=== PATIENT | male | born 1950 | race Caucasian/White ===

== ENCOUNTER 2025-03-06 07:41 | Outpatient (OUT) | payer MEDICARE, SELFPAY ==
--- OUTSIDE RECORDS SUMMARY | 2025-03-02 23:59 | XMS_ITS | Continuity of Care Document ---
Author Organization [facility] Address [address] [place] [id number] Care Team Providers Care [employer] Name Role Phone Zoë Brand Primary Care Physician Encounter FT_AMBFIN [id number] Date(s): 03/02/25 - 03/02/25 [facility] [address] [place] [address]- Encounter Diagnosis Prostate cancer(Discharge Diagnosis) - 03/02/25 Immunization due(Discharge Diagnosis) - 03/02/25 BMI 27.0-27.9,adult(Discharge Diagnosis) - 03/02/25 Overweight (BMI 25.0-29.9)(Discharge Diagnosis) - 03/02/25 Hyperlipemia(Discharge Diagnosis) - 03/02/25 Encounter for screening for hematologic disorder(Discharge Diagnosis) - 03/02/25 Screening for diabetes mellitus(Discharge Diagnosis) - 03/02/25 Impaired fasting glucose(Discharge Diagnosis) - 03/02/25 Screening for lung cancer(Discharge Diagnosis) - 03/02/25 Cigar smoker(Discharge Diagnosis) - 03/02/25 Former tobacco use(Discharge Diagnosis) - 03/02/25 Asymptomatic bradycardia(Discharge Diagnosis) - 03/02/25 Sigmoid diverticulosis(Discharge Diagnosis) - 03/02/25 Discharge Disposition: Home (Routine DC) Attending Physician: Zoë Brand DO Encounter Type: Clinic Allergies, Adverse Reactions, Alerts No Known Medication Allergies SubstanceCriticalitySeverityReactionReaction SeverityStatusSeasonalSneezing Active Treatment Plan Future Appointments Appointment Date:03/16/2025 08:00:00 AM Scheduled Provider: Location:[facility] Appointment Type: Medicare Wellness Subsequent Appointment Date:03/16/2025 09:00:00 AM Scheduled Provider:Zoë Brand DO Location:[facility] Appointment Type: Open Immunizations Given and Recorded VaccineDateStatusRefusal Reasonpneumococcal 20-valent conjugate ewbxths63/3/25 DpjmgRSZZ-PiE-2 (COVID-19) mRNA BNT-162b2 vax10/43JkrirJWJW-LzD-6 (COVID-19) mRNA BNT-162b2 vax13//07RmviuKNRR-DwO-6 (COVID-19) mRNA BNT-162b2 vax22/ FauieVYDP-WnY-8 mRNA (tozinameran 5y-11y) fkh547/90EvyrkquvVSSD-SlW-2 mRNA (tozinameran 5y-11y) vac43/46TgeskczbZCXK-XvA-6 mRNA (tozinameran 5y-11y) vac 52/Recorded 1Reason for Medication: Prophylaxis 2Reason for Medication: Prophylaxis 3Result Comment: Route: Unknown 4Result Comment: Route: Unknown Outside Source Comment: Comment on above: Reason for Medication: Prophylaxis 5Result Comment: Route: Unknown Outside Source Comment: Comment on above: Reason for Medication: Prophylaxis Medications No Known Medications Problem List ConditionConfirmationCourseEffective DatesStatusHealth StatusInformant Asymptomatic bradycardiaConfirmedActiveCervical radiculopathyConfirmedActive Cervical spondylosisConfirmedActiveCigar smokerConfirmedActiveDiverticular diseaseConfirmedResolvedSigmoid diverticulosisConfirmedActiveFormer tobacco use ConfirmedActiveHyperlipemiaConfirmedActiveImpaired fasting glucoseConfirmed ActiveProstate cancerConfirmedActiveScreening for diabetes mellitusConfirmed ActiveEncounter for screening for hematologic disorderConfirmedActiveScreening for lung cancerConfirmedActivePure butarkasnapjnutjease0EnwplgvpwEdnfosFfnxov intoleranceConfirmedActiveTobacco useConfirmedActivepatient 1ASCVD- 23.2% Procedures ProcedureDateRelated DiagnosisBody NotfVmbtkgObignmydthk22/1/15Completed Colonoscopy11/29/07CompletedBilateral gqlxeogorPojfhgezlAcjrtz9Pchhwkmcd TonsillectomyCompletedTransrectal biopsy of prostate using ultrasound (US) guidanceCompleted 1left knee 2peridontal surgery Social History Social History TypeResponseSmoking StatusCigars or pipes but not daily within last 30 days;Former smoker, quit more than 30 days ago;Never; Type: Cigars; Concerns about tobacco use in household: No; Tobacco use per day: 1; Started at age: 16.0; Stopped at age: 65;1, 2 entered on: 03/02/25Birth SexMaleSex RepresentationMale (finding) 1smokes a cigar on occasion 2pt quit smoking in 2018 Hospital Discharge Instructions Follow Up Care 02/25/2025 13:07:10 With:Zoë Brand DO, [facility], PED Address: When:Within 2 Week(s) Patient Care team information Care Team Personnel Name: Zoë Brand DO Position: FT Ambulatory - Primary Care Provider? Member Role: Primary Care Physician Address: [address] [place] [phone]- Telecom: Care Team Related Persons Name: KRISTI PRICE Name: JOHNSON SCHNEIDER Name: SANDRA PEÑA Insurance Providers Guarantor name: Health Plan Information #: 1 Payer: [employer] Payer Identifier: [id number] Member Number: [id number] Group Number: [id number] Subscriber Identifier: [id number] Relationship to Subscriber: self Coverage Type: MEDICARE Coverage Verification Date: 25 Telecom: [phone] Address: [facility] [id number] [place] [id number] [place] [address]
--- OUTSIDE RECORDS SUMMARY | 2025-03-02 23:59 | XMS_ITS | Continuity of Care Document ---
Author Organization [facility] Address Unknown Care Team Providers Care Geriatric Social Work Professor Name Role Phone Zoë Brand Primary Care Physician Encounter _[facility] [id number] Date(s): 03/02/25 - 03/02/[address] [address] Discharge Disposition: Home (Routine DC) Attending Physician: Zoë Brand DO Admitting Physician: Zoë Brand DO Encounter Type: Lab Drop off Allergies, Adverse Reactions, Alerts No Known Medication Allergies SubstanceCriticalitySeverityReactionReaction SeverityStatusSeasonalSneezing Active Treatment Plan Future Appointments Appointment Date:03/16/2025 08:00:00 AM Scheduled Provider: Location:[facility] Appointment Type: Medicare Wellness Subsequent Appointment Date:03/16/2025 09:00:00 AM Scheduled Provider:Zoë Brand DO Location:[facility] Appointment Type: Open Immunizations Given and Recorded VaccineDateStatusRefusal Reasonpneumococcal 20-valent conjugate urchcpd84/3/25 GiyhjGQQF-HrT-9 (COVID-19) mRNA BNT-162b2 vax10//38GkmfkYWAY-WiV-0 (COVID-19) mRNA BNT-162b2 vax107/22/24QlepoONRL-WsR-7 (COVID-19) mRNA BNT-162b2 vax206/24/20 QozgpHWLP-LnU-4 mRNA (tozinameran 5y-11y) yzk720//12UrzesvyrGQQO-NjI-6 mRNA (tozinameran 5y-11y) vac43//34IanwqxrgXNMT-MqL-5 mRNA (tozinameran 5y-11y) vac 52//Recorded 1Reason for Medication: Prophylaxis 2Reason for Medication: Prophylaxis 3Result Comment: Route: Unknown 4Result Comment: Route: Unknown Outside Source Comment: Comment on above: Reason for Medication: Prophylaxis 5Result Comment: Route: Unknown Outside Source Comment: Comment on above: Reason for Medication: Prophylaxis Problem List ConditionConfirmationCourseEffective DatesStatusHealth StatusInformant Asymptomatic bradycardiaConfirmedActiveCervical radiculopathyConfirmedActive Cervical spondylosisConfirmedActiveCigar smokerConfirmedActiveDiverticular diseaseConfirmedResolvedSigmoid diverticulosisConfirmedActiveFormer tobacco use ConfirmedActiveHyperlipemiaConfirmedActiveImpaired fasting glucoseConfirmed ActiveProstate cancerConfirmedActiveScreening for diabetes mellitusConfirmed ActiveEncounter for screening for hematologic disorderConfirmedActiveScreening for lung cancerConfirmedActivePure biqruenzltqbdalkokzt4RwgbpbniuShiejxDcpcuy intoleranceConfirmedActiveTobacco useConfirmedActivepatient 1ASCVD- 23.2% Procedures ProcedureDateRelated DiagnosisBody OchlYpfijcLsbnvjroryy84/1/15Completed Colonoscopy11/29/07CompletedBilateral tzqichwmpPpjohihquBephgs7Eevnjofer TonsillectomyCompletedTransrectal biopsy of prostate using ultrasound (US) guidanceCompleted 1left knee 2peridontal surgery Results Laboratory List NameDateCBC w/ Auto Diff03/02/25Comprehensive Metabolic Panel (CMP)03/02/2534GeyN2f (Hemoglobin A1c)03/02/25Lipid Panel03/02/25PSA Screen, Total03/02/2519qLHA92/3/25 Most recent to oldest [Reference Range]:1A/G Ratio [1.1-2.2]1.6 (03/02/25 8:18 AM)BUN/Creat Ratio [10-20]11 (03/02/25 8:18 AM)AGAP [6-16 mEq/L]11 mEq/L (03/02/25 8:18 AM)Albumin Lvl [3.3-5.0 gm/dL]4.2 gm/dL (03/02/25 8:18 AM)Alk Phos [21-98 Int._Unit/L]72 Int._Unit/L (03/02/25 8:18 AM)ALT [6-46 Int._Unit/L]13 Int._Unit/L (03/02/25 8:18 AM)AST [5-43 Int._Unit/L]20 Int._Unit/L (03/02/25 8:18 AM)Basophil Auto [0.0-2.0 %]0.4 % (03/02/25 8:18 AM)Bili Total [0.0-1.1 mg/dL]0.9 mg/dL (03/02/25 8:18 AM)Chol [120-200 mg/dL]219 mg/dL *HI* (03/02/25 8:18 AM)CO2 [21-31 mmol/L]29 mmol/L (03/02/25 8:18 AM)Eos Auto [0.0-8.0 %]2.4 % (03/02/25 8:18 AM)Glucose Lvl [55-199 mg/dL]118 mg/dL (03/02/25 8:18 AM)Hct [37.7-49.0 %]45.5 % (03/02/25 8:18 AM)HDL63 mg/dL1 *NA* (03/02/25 8:18 AM)Hgb [13.5-17.5 gm/dL]15.7 gm/dL (03/02/25 8:18 AM)Lymph Auto [14.0-50.0 %]30.4 % (03/02/25 8:18 AM)RBC [4.3-5.9 E12/L]5.1 E12/L (03/02/25 8:18 AM)RDW [10.9-14.2 %]14.3 % *HI* (03/02/25 8:18 AM)Sodium Lvl [135-145 mmol/L]138 mmol/L (03/02/25 8:18 AM)Total Protein [6.0-7.8 gm/dL]6.8 gm/dL (03/02/25 8:18 AM)Trig [<=149 mg/dL]150 mg/dL *HI* (03/02/25 8:18 AM)MCH [27.0-34.0 pg]30.5 pg (03/02/25 8:18 AM)MCHC [31.4-36.0 gm/dL]34.5 gm/dL (03/02/25 8:18 AM)MCV [80.0-100.0 fL]88.5 fL (03/02/25 8:18 AM)Fajardo Auto [4.0-14.0 %]8.9 % (03/02/25 8:18 AM)MPV [6.4-10.8 fL]8.4 fL (03/02/25 8:18 AM)Neutro Auto [36.0-75.0 %]57.9 % (03/02/25 8:18 AM)BUN [5-21 mg/dL]12 mg/dL (03/02/25 8:18 AM)Calcium Lvl [8.9-11.1 mg/dL]9.3 mg/dL (03/02/25 8:18 AM)Platelet [150.0-500.0 E9/L]213.0 E9/L (03/02/25 8:18 AM)Potassium Lvl [3.5-5.3 mmol/L]5.5 mmol/L *HI* (03/02/25 8:18 AM)WBC [4.0-11.0 E9/L]5.2 E9/L2 (03/02/25 8:18 AM)LDL Direct [<=129 mg/dL]132 mg/dL *HI* (03/02/25 8:18 AM)Chloride [101-111 mmol/L]104 mmol/L (03/02/25 8:18 AM)Fajardo Absolute [0.2-1.0 E9/L]0.5 E9/L (03/02/25 8:18 AM)Eos Absolute [0.0-0.5 E9/L]0.1 E9/L (03/02/25 8:18 AM)Basophil Absolute [0.0-0.2 E9/L]0.0 E9/L (03/02/25 8:18 AM)Neutro Absolute [2.0-7.5 E9/L]3.0 E9/L (03/02/25 8:18 AM)Lymph Absolute [1.0-4.0 E9/L]1.6 E9/L (03/02/25 8:18 AM)eGFR [>=59 mL/min/1.73 m2]70 mL/min/1.73 m2 (03/02/25 8:18 AM)Hgb A1C % [<=5.9 %]5.6 % (03/02/25 8:18 AM)Globulin [1.4-4.0 gm/dL]2.6 gm/dL (03/02/25 8:18 AM)PSA Scrn Tot. [0.1-3.5 ng/mL]<0.1 ng/mL3 *LOW* (03/02/25 8:18 AM)VLDL [7-40 mg/dL]30 mg/dL (03/02/25 8:18 AM)Creatinine [0.5-1.3 mg/dL]1.1 mg/dL (03/02/25 8:18 AM) 1Result Comment: '>= 60 LOW RISK' '<= 40 HIGH RISK' 2Result Comment: Peripheral smear review performed. 3Interpretive Data: The concentration of PSA determined by different manufacturers can vary due to differences in assay methods and reagent specificity. Values obtained from different assay methods cannot be used interchangeably. The methodology used for this result was chemiluminescence using [employer]'s Access Hybritech PSA reagent. Social History Social History TypeResponseSmoking StatusCigars or pipes but not daily within last 30 days;Former smoker, quit more than 30 days ago;Never; Type: Cigars; Concerns about tobacco use in household: No; Tobacco use per day: 1; Started at age: 16.0; Stopped at age: 65;1, 2 entered on: 03/02/25Birth SexMaleSex RepresentationMale (finding) 1smokes a cigar on occasion 2pt quit smoking in 2018 Patient Care team information Care Team Personnel Name: Zoë Brand DO Position: FT Ambulatory - Primary Care Provider? Member Role: Primary Care Physician Address: [address] [place] [address]- Telecom: Care Team Related Persons Name: KRISTI PRICE Name: JOHNSON SCHNEIDER Name: SANDRA PEÑA Insurance Providers Guarantor name: Health Plan Information #: 1 Payer: AET[employer] Payer Identifier: [id number] Member Number: [id number] Group Number: [id number] Subscriber Identifier: [id number] Relationship to Subscriber: self Coverage Type: MEDICARE Coverage Verification Date: Telecom: [phone] Address: [facility] [address] [place], [place] [address]
--- OUTSIDE RECORDS SUMMARY | 2025-03-06 07:48 | XMS_ITS | Clinical Summary ---
Author Organization [facility] Address [address] [place] [address] Phone Care Team Providers Care Demonstrator Kn[employer] Name Role Phone Izabela Kaur MD Primary Care Provider [phone] Social History Tobacco UseTypesPacks/DayYears UsedDateSmoking Tobacco: Never AssessedSex and Gender InformationValueDate RecordedSex Assigned at BirthNot on fileLegal Sex Male03/25/2022 3:49 PM ESTGender IdentityNot on fileSexual OrientationNot on file Last Filed Vital Signs Vital SignReadingTime TakenCommentsBlood Ohkvfkea793/8101 9:25 AM EST Wspur749305/04/2021 9:25 AM IRDGbzsztexxap03.7 ??C (98.1 ??F)05/04/2021 9:25 AM ESTRespiratory Trhg776505/04/2021 9:25 AM ESTOxygen Saturation--Inhaled Oxygen Concentration--Jdtrnl29.3 kg (212 lb 4 oz)05/04/2021 9:25 AM KXRUiztaa395.3 cm (5' 11 )05/04/2021 9:25 AM ESTBody Mass Index29.601 9:25 AM EST Plan of Treatment Not on file Advance Directives For more information, please contact: [phone] (Available ) TypeDate RecordedPatient RepresentativeExplanationAdvance Directives and Living Will03/18/2020Advance Directives and Living Will03/18/2020Healthcare Power of Atty105/17/2019Living Will03/17/2020 Care Teams Team MemberRelationshipSpecialtyStart DateEnd Date Izabela Kaur MD [address] MD [facility] [place] [address] [facility] - Ctrwkar56/2/20
--- NOTE | 2025-03-06 07:51 | CT_ITS ---
The [address] [address] Patient Name: SUMA SCHNEIDER MRN: [id number] date: 1950 Sex: M Assigned Patient Location: CT Current Patient Location: CT Accession/Order Number: [id number] Exam Date: 03/06/2025 07:58 Report Date: 03/06/2025 08:42 At the request of: NON-STAFF PHYSICIAN Procedure: CT lung screening low-dose LOW-DOSE SCREENING CHEST CT WITHOUT CONTRAST COMPARISON: None CLINICAL DATA: Former smoker with 45 pack year history Spiral axial unenhanced images were obtained through the chest. Images were reviewed using both narrow and wide window settings. This CT exam was performed using one or more following dose reduction techniques: Automated exposure control, adjustment of the mA and/or kV according to patient size, or use of iterative reconstruction technique. The heart is normal in size. No pericardial effusion is present. No aortic aneurysm is noted. There is mild plaque at the aortic arch, descending and order and proximal great vessels. No enlarged lymph nodes are seen. Endplate spurring is present at the spine. Apical scarring is noted. Additional minor scarring or atelectasis is present. No consolidation, pleural effusion or pneumothorax is seen. Tiny 2 - 3 mm nodular densities are seen on the right. Limited imaging through the upper abdomen show hepatic hypodensities that might be cysts. CT/CT lung screening low-dose IMPRESSION: TINY RIGHT PULMONARY NODULES. Lung RADS category 2 - benign Twelve-month low-dose CT follow-up suggested Impression dictated by: Allyson Metz M.D. 03/06/2025 8:42 AM Dictation Location: [place] [address] Electronically authenticated by: [id number] Date: 03/06/2025 08:42
== END 2025-03-06 07:42 | disposition home or self-care (01) ==
LOC: CT 07:44
DX: R91.8 Other nonspecific abnormal finding of lung field (principal); F17.290 Nicotine dependence, other tobacco product, uncomplicated; Z12.2 Encounter for screening for malignant neoplasm of respiratory organs; F17.210 Nicotine dependence, cigarettes, uncomplicated
CPT/HCPCS: 71271